=== PATIENT | male | born 1955 | race Caucasian/White ===

== ENCOUNTER 2021-06-25 13:24 | Emergency (ER) | payer BC, MEDICAID ==
[~2021-06-25] VITALS: Ht 185.4 cm; Wt 81.6 kg
[~2021-06-25 13:24] MED LIST: CLIN300C8 PO; NOR10T PO
[2021-06-25 14:40] VITALS: BP 131/75
[2021-06-25] MEDS ORDERED: HYDROcodone-ACET 5/325MG TAB PO ONE (14:45)
== END 2021-06-25 15:13 | disposition home or self-care (01) ==
LOC: ER 13:24
DX: S30.0XXA Contusion of lower back and pelvis, initial encounter (principal); F17.210 Nicotine dependence, cigarettes, uncomplicated; Z79.2 Long term (current) use of antibiotics; Z79.899 Other long term (current) drug therapy; W01.0XXA Fall on same level from slipping, tripping and stumbling without subsequent striking against object, initial encounter; Y93.89 Activity, other specified; Y92.89 Other specified places as the place of occurrence of the external cause; Y99.8 Other external cause status
CPT/HCPCS: 73502